=== PATIENT | female | born 1980 | race Caucasian/White ===

== ENCOUNTER 2025-05-09 20:28 | Emergency (ER) | payer SELFPAY ==
[~2025-05-09] VITALS: Ht 167.6 cm; Wt 143.0 kg
[~2025-05-09 20:28] MED LIST: HYDR-4383 PO
[2025-05-09 20:30] VITALS: TEMP 97.2
--- NOTE | 2025-05-09 23:50 | Physician Documentation ---
History of Present Illness ~ Chief Complaint: Knee Pain Stated Complaint: L KNEE PAIN/POSS BLOOD CLOT Time Seen by MD: 22:46 HPI 44-year-old female presenting for a left lower extremity swelling that has been ongoing for the past couple of days. Patient reports that her leg has swollen up and she is concerned about a blood clot. She currently is taking estrogen for perimenopausal symptoms and she knows that this is a risk factor. She denies any trauma. She states that the inside of her left knee has been painful as well especially with weight bearing and she is unsure if this is related. She denies any chest pain, shortness of breath or any other associated symptoms. Medication Reconciliation Allergies: Coded Allergies: Sulfa (Sulfonamide Antibiotics) (Unverified Adverse Reaction, Mild, SICK?, 05/09/25) acetaminophen (Unverified Adverse Reaction, Mild, nausea, 05/09/25) amoxicillin (Unverified Adverse Reaction, Mild, stomach ache, 05/09/25) clavulanic acid (Unverified Adverse Reaction, Mild, stomach ache, 05/09/25) hydrocodone (Unverified Adverse Reaction, Mild, nausea, 05/09/25) Scheduled Hydrocodone/Acetaminophen (Havana 5-325 Tablet), 1 TABLET PO HS Past Medical History Past Medical History: Hypothyroidism Past Surgical History: tonsillectomy Alcohol Use: None Drug Use: none Lives with: Spouse Lives In: Home Occupation: employed Review of Systems All Other Systems at this time: Reviewed and Negative Physical Exam Vital Signs: Temperature: 97.2, Source: Temporal, Heart Rate: 81, Respiratory Rate: 17, BP: 155/102, Pulse Oximetry: 100, Weight: 143.000 Oxygen Flow Rate: 0 Physical Exam I have reviewed the triage vitals. CONST: Well developed and well nourished. In no acute distress HENT: Head Atraumatic EYES: Pupils are equal, round and reactive to light. Normal conjunctiva NECK: Normal range of motion. Supple. CARDIO: Normal rate and regular rhythm. No murmurs, rubs, or gallops. S1, S2. PULM/CHEST: No respiratory distress. Lungs clear to auscultation. No wheeze ABD: Soft and nontender. Nondistended. Bowel sounds normal. No guarding. : Exam deferred MSK: Left lower extremity with 1+ pitting edema ranging from the knee down to the ankle. There is tenderness to palpation over the medial side of the knee. Normal flexion and extension. Divina's test is negative. There is a positive Jagdeep's test. Negative varus/valgus NEURO: Alert and oriented to person, place and time. Moving all extremities SKIN: Warm and dry. PSYCH: Normal mood and affect. Good eye contact. Progress Results/Orders Results/Orders Orders - KAYLEEN MENARD MD Venous Us Study (05/09/25 23:01) Vl Venous (05/09/25 ) Knee W/Obliques 3 Vw (05/09/25 00:06) Completed Orders - KAYLEEN MENARD MD Vl Venous (05/09/25 ) Knee W/Obliques 3 Vw (05/09/25 00:06) Vital Signs 05/09/25 05/09/25 05/10/25 05/10/25 20:30 22:29 00:07 00:22 Temp 97.2 Pulse 92 81 74 Resp 16 17 15 B/P (MAP) 148/92 155/102 (119) 139/95 (110) Pulse Ox 97 100 100 O2 Flow Rate 0 0 0 EKG/XRAY/CT/US/VASC/MRI Bone/Soft Tissue X-Ray (Ext.) : Additional Comment CLINICAL INDICATION: left knee pain TECHNIQUE: 3 views DI KNEE W/OBLIQUES 3 VW Comparison: None FINDINGS/IMPRESSION: : No acute fracture or joint malalignment. No effusion or significant degenerative change. Unremarkable soft tissues. Ultrasound : Impression EXAMINATION: Left lower extremity venous Doppler ultrasound. CLINICAL HISTORY: Pain and swelling. TECHNIQUE: Grayscale ultrasound with compression, color-flow Doppler, and spectral duplex Doppler ultrasound of the deep venous system of the left lower extremity was performed, with similar evaluation of the right common femoral vein. COMPARISON: None FINDINGS: Left common femoral vein: Negative. Left greater saphenous: Negative. Left deep femoral vein: Negative. Left femoral vein: Negative. Left popliteal vein: Negative. Right common femoral vein: Negative. IMPRESSION: No sonographic evidence of deep venous thrombosis in the left lower extremity at this time. Medical Decision Making Knee Diff Dx:Considerations: Include: Arthritis, Meniscus injury Additional Comment 44-year-old female presenting for left knee pain and lower extremity edema. X- ray was unremarkable. Venous Doppler ultrasound was negative for any signs of DVT. There is a possibility that the patient may have a meniscal injury given the physical exam. I advised that she needs to follow up with the primary care physician for an MRI and potential referral to Orthopedics or sports Medicine. Regarding the swelling some of this may be due to the medications that she is on. I advised her to keep her legs elevated when she can and to also follow up with the PCP regarding this. Return to the ED with any acutely worsening symptoms. Departure Disposition: HOME / SELF CARE / HOMELESS Impression: Primary Impression: Swelling of lower extremity Additional Impression: Knee pain, left Condition: Stable Discharge Instructions: Peripheral Edema Additional Instructions: Please follow up with her primary care physician for further evaluation of your left knee pain and lower extremity swelling. Your imaging studies were negative here today. Please elevate your leg and he may apply ice to your knee. Should your knee pain not resolve you will need follow up with her PCP and an MRI for further evaluation. Return to the ED with any acutely worsening symptoms. Referrals: NO PRIMARY CARE PROVIDER (PCP) Signature Scribe Signature: 1 Attestation: 1 KAYLEEN MENARD MD May 09, 2025 23:50
[2025-05-10 00:07] VITALS: BP 139/95; PULSE 74; RESP 15; O2SAT 100
--- NOTE | 2025-05-10 00:17 | RADIOLOGY REPORT ---
CLINICAL INDICATION: left knee pain TECHNIQUE: 3 views DI KNEE W/OBLIQUES 3 VW Comparison: None FINDINGS/IMPRESSION: : No acute fracture or joint malalignment. No effusion or significant degenerative change. Unremarkable soft tissues.
--- NOTE | 2025-05-10 00:44 | VASCULAR REPORT ---
EXAMINATION: Left lower extremity venous Doppler ultrasound. CLINICAL HISTORY: Pain and swelling. TECHNIQUE: Grayscale ultrasound with compression, color-flow Doppler, and spectral duplex Doppler ult rasound of the deep venous system of the left lower extremity was performed, with similar evaluation of the right common femoral vein. COMPARISON: None FINDINGS: Left common femoral vein: Negative. Left greater saphenous: Negative. Left deep femoral vein: Negative. Left femoral vein: Negative. Left popliteal vein: Negative. Right common femoral vein: Negative. IMPRESSION: No sonographic evidence of deep venous thrombosis in the left lower extremity at this time.
== END 2025-05-10 00:44 | disposition home or self-care (01) ==
LOC: ER 20:29
DX: M79.89 Other specified soft tissue disorders (principal); M25.562 Pain in left knee; E03.9 Hypothyroidism, unspecified; Z88.0 Allergy status to penicillin; Z88.5 Allergy status to narcotic agent; Z90.89 Acquired absence of other organs
CPT/HCPCS: 73562; 93971; 99284